=== PATIENT | female | born 1980 | race African-American/Black ===

== ENCOUNTER 2020-04-11 11:02 | Emergency (ER) | payer MEDICAID ==
[~2020-04-11] VITALS: Ht 167.6 cm; Wt 70.3 kg
[2020-04-11] MEDS ORDERED: Metoclopramide 10mg/2ml Inj IVP ONE (11:30)
[2020-04-11] MEDS ORDERED: Omnipaque 350 100ml vial INJ PRN (11:30)
--- NOTE | 2020-04-11 11:30 | Emergency Room Report ---
History of Present Illness General Chief Complaint: Headache Source: Patient Present Illness HPI 39-year-old female, no past medical history no surgical history no family history presents with vague complaints of intermittent headache that comes on with exertion specifically sexual intercourse lasting 2 hours with severe intensity and slowly dying off, no alleviating factors severity is severe, intermittent, patient states she usually does not get headaches, no nausea no vomiting no weakness patient presents for evaluation and treatment Allergies: Coded Allergies: No Known Allergies (Unverified , 04/11/20) COVID-19 Screening Contact w/high risk pt: No Experienced COVID-19 symptoms?: No COVID-19 Testing performed PARAMEDIC SUPERVISOR: No Patient History Past Medical History: see triage record Last Menstrual Period: 03/30/20 Reviewed Nursing Documentation: PMH: Agreed; PSxH: Agreed Nursing Documentation-PMH Past Medical History: No Stated History Review of Systems All Other Systems: negative except mentioned in HPI Physical Exam Vital Signs Date Time Temp Pulse Resp B/P (MAP) Pulse Ox O2 Delivery O2 Flow Rate FiO2 04/11/20 11:06 97.9 68 18 137/76 (96) 99 Room Air Sp02 EP Interpretation: reviewed, normal General Appearance: well appearing, no apparent distress, alert Head: normocephalic, atraumatic Eyes: bilateral eye PERRL, bilateral eye EOMI ENT: uvula midline, moist mucus membranes Neck: supple, thyroid normal, supple/symm/no masses Respiratory: lungs clear, no respiratory distress, no retraction, no accessory muscle use Cardiovascular #1: normal peripheral pulses, regular rate, rhythm, no edema, no gallop, no murmur Gastrointestinal: non tender, soft, no guarding, no rebound Musculoskeletal: normal inspection Neurologic: alert, motor strength/tone normal, business consult III-XII nml as tested, orie nted x3, cerebellar normal - Cnuoue-om-llny testing intact, speech normal, normal gait, no pronator, other - Negative Romberg Psychiatric: mood/affect normal Skin: no rash, warm/dry Medical Decision Making Diagnostic Impression: Primary Impression: Headache Qualified Codes: R51.9 - Headache, unspecified ER Course There are no red flags of SCHMID, not sudden in onset, not maximal in onset, no acute neurological findings, no fever with head stiffness, how ever patient does have an exertional component will evaluate for possible aneurysm with CTA. Low suspicion for subarachnoid hemorrhage, encephalitis, meningitis. CTA negative. Pain improved s/p headache cocktail reassurance. Return precautions discussed follow-up with PCP. Laboratory Tests Test 04/11/20 11:28 White Blood Count 6.1 K/UL (4.8-10.8) Red Blood Count 4.33 M/UL (4.20-5.40) Hemoglobin 13.3 G/DL (12.0-16.0) Hematocrit 38.9 % (37.0-47.0) Mean Corpuscular Volume 90 FL (80-99) Mean Corpuscular Hemoglobin 30.6 PG (27.0-31.0) Mean Corpuscular Hemoglobin Concent 34.0 G/DL (32.0-36.0) Red Cell Distribution Width 12.1 % (11.6-14.8) Platelet Count 361 K/UL (150-450) Mean Platelet Volume 6.0 FL (6.5-10.1) L Neutrophils (%) (Auto) 37.3 % (45.0-75.0) L Lymphocytes (%) (Auto) 46.5 % (20.0-45.0) H Monocytes (%) (Auto) 6.7 % (1.0-10.0) Eosinophils (%) (Auto) 6.2 % (0.0-3.0) H Basophils (%) (Auto) 3.2 % (0.0-2.0) H Prothrombin Time 11.0 SEC (9.30-11.50) Prothrombin Time INR 1.0 (0.9-1.1) Activated Partial Thromboplast Time 26 SEC (23-33) Urine Color Yellow Urine Appearance Clear Urine pH 6 (4.5-8.0) Urine Specific [place] 1.020 (1.005-1.035) Urine Protein 1+ (NEGATIVE) H Urine Glucose (UA) Negative (NEGATIVE) Urine Ketones Negative (NEGATIVE) Urine Blood Negative (NEGATIVE) Urine Nitrite Negative (NEGATIVE) Urine Bilirubin Negative (NEGATIVE) Urine Urobilinogen Normal MG/DL (0.0-1.0) Urine Leukocyte Esterase 1+ (NEGATIVE) H Urine RBC 0-2 /HPF (0 - 2) Urine WBC 0-2 /HPF (0 - 2) Urine Squamous Epithelial Cells Few /LPF (NONE/OCC) Urine Bacteria Occasional /HPF (NONE) Urine Mucus Moderate /LPF (NONE/OCC) H Urine HCG, Qualitative Negative (NEGATIVE) Sodium Level 140 MMOL/L (136-145) Potassium Level 3.7 MMOL/L (3.5-5.1) Chloride Level 104 MMOL/L (98-107) Carbon Dioxide Level 29 MMOL/L (21-32) Anion Gap 7 mmol/L (5-15) Blood Urea Nitrogen 4 mg/dL (7-18) L Creatinine 0.9 MG/DL (0.55-1.30) Estimated Glomerular Filtration Rate > 60 mL/min (>60) Glucose Level 96 MG/DL (74-106) Calcium Level 8.8 MG/DL (8.5-10.1) Total Bilirubin 0.4 MG/DL (0.2-1.0) Aspartate Amino Transferase (AST) 15 U/L (15-37) Alanine Aminotransferase (ALT) 16 U/L (12-78) Alkaline Phosphatase 55 U/L (46-116) Total Protein 6.8 G/DL (6.4-8.2) Albumin 3.6 G/DL (3.4-5.0) Globulin 3.2 g/dL Albumin/Globulin Ratio 1.1 (1.0-2.7) Human Chorionic Gonadotropin, Quant < 1 mIU/mL (1-6) L Last Vital Signs Date Time Temp Pulse Resp B/P (MAP) Pulse Ox O2 Delivery O2 Flow Rate FiO2 04/11/20 11:06 97.9 68 18 137/76 (96) 99 Room Air Disposition: HOME, SELF-CARE Condition: Stable Scripts Riboflavin (VITAMIN B-2) 100 Mg Tablet 400 MG PO DAILY, #120 TAB Prov: Quirino Torres MD 04/11/20 [facility]: [facility] Patient Instructions: General Headache Without Cause Additional Instructions: The patient was provided with discharge instructions, notified to follow-up with a primary care doctor and or specialist in the next 24-48 hours, and to return to the ED if they have worsening of their symptoms. Please note that this report is being documented using DRAGON technology. This can lead to erroneous entry secondary to incorrect interpretation by the dictating instrument. Quirino Torres MD Apr 11, 2020 11:30
[2020-04-11 11:42] VITALS: BP 137/76
--- NOTE | 2020-04-11 11:44 | NUR ---
ED Nurse Note:pt. c/o migraine headache, blood and urine sent to labs , iv fluids given
[2020-04-11 12:00] LABS: APPEARANCE,URINE CLEAR; BILIRUBIN, URINE NEGATIVE (NEGATIVE); GLUCOSE, URINE (UA) NEGATIVE (NEGATIVE); KETONES,URINE NEGATIVE (NEGATIVE); LEUKOCYTE ESTERASE ,URINE 1+ (NEGATIVE); NITRITE,URINE NEGATIVE (NEGATIVE); PH,URINE 6 (4.5-8.0); PROTEIN,URINE 1+ (NEGATIVE); UROBILINOGEN,URINE NORMAL MG/DL (0.0-1.0)
[2020-04-11 12:01] LABS: BASOPHILS % (AUTO) 3.2 % (0.0-2.0); EOSINOPHILS % (AUTO) 6.2 % (0.0-3.0); HEMATOCRIT 38.9 % (37.0-47.0); HEMOGLOBIN 13.3 G/DL (12.0-16.0); LYMPHOCYTES % (AUTO) 46.5 % (20.0-45.0); MEAN CORPUSCULAR VOLUME 90 FL (80-99); MONOCYTES % (AUTO) 6.7 % (1.0-10.0); NEUTROPHILS % (AUTO) 37.3 % (45.0-75.0); PLATELET COUNT 361 K/UL (150-450); RED BLOOD COUNT 4.33 M/UL (4.20-5.40); RED CELL DISTRIBUTION WIDTH 12.1 % (11.6-14.8); WHITE BLOOD COUNT 6.1 K/UL (4.8-10.8)
[2020-04-11 12:06] LABS: COLOR,URINE YELLOW
[2020-04-11 12:15] LABS: ANION GAP 7 mmol/L (5-15); BLOOD UREA NITROGEN 4 mg/dL (7-18); CALCIUM 8.8 MG/DL (8.5-10.1); CARBON DIOXIDE 29 MMOL/L (21-32); CHLORIDE 104 MMOL/L (98-107); CREATININE 0.9 MG/DL (0.55-1.30); POTASSIUM 3.7 MMOL/L (3.5-5.1); SODIUM 140 MMOL/L (136-145)
[2020-04-11 12:21] LABS: ALANINE AMINOTRANSFERASE 16 U/L (12-78); ALBUMIN 3.6 G/DL (3.4-5.0); ALBUMIN/GLOBULIN RATIO 1.1 (1.0-2.7); ALKALINE PHOSPHATASE 55 U/L (46-116); ASPARTATE AMINO TRANSFERASE 15 U/L (15-37); BILIRUBIN,TOTAL 0.4 MG/DL (0.2-1.0)
--- NOTE | 2020-04-11 12:26 | NUR ---
ED Nurse Note: pt taken for imaging with WC in stable condition.
--- NOTE | 2020-04-11 12:45 | NUR ---
ED Nurse Note: pt came back from imaging in stable condition.
--- NOTE | 2020-04-11 14:47 | Diagnostic Imaging Report ---
Indication: Headache Technique: Precontrast spiral acquisitions obtained through the brain. IV administration nonionic contrast. Arterial phase acquisitions obtained through the neck and brain, delayed phase acquisitions through the brain. Multiplanar 3-D reconstructions were generated. Total dose length product 4340 mGycm. CTDIvol(s) 45, 5, 19, 28, 2845 mGy. Dose reduction achieved using automated exposure control Comparison: none Findings Exam is somewhat limited, as arterial opacification is adequate but not optimal. CTA NECK: Unremarkable aortic arch. Patent nonstenotic right brachiocephalic artery, common carotid artery, internal carotid artery. No evidence of carotid dissection. Patent nonstenotic right proximal subclavian artery. Patent codominant nonstenotic right vertebral artery. Patent nonstenotic right common carotid artery and internal carotid artery. No evidence of internal carotid dissection demonstrated. No significant stenosis. Patent nonstenotic left subclavian artery. Portions of the proximal vertebral artery are obscured due to streak artifact from adjacent contrast filled veins but no definite significant stenosis or occlusion is evident. CTA BRAIN: Precontrast images demonstrate no evidence of acute intracranial hemorrhage or edema, mass effect, nor midline shift. Normal dennis-white differentiation. Normal size ventricles and extra-axial CSF spaces. Patent bilateral extracranial vertebral arteries right smaller caliber than the left. Patent nonstenotic basilar artery. Patent bilateral superior cerebellar arteries. Patent nonstenotic bilateral posterior cerebral arteries and proximal branches. Patent nonstenotic distal internal carotid arteries. Patent nonstenotic bilateral middle cerebral arteries and proximal branches. Patent nonstenotic bilateral anterior cerebral artery and proximal branches. Both posterior communicating arteries appear to be patent. Anterior communicating artery is not definitely visualized. No evidence of intracranial aneurysm or vascular malformation demonstrated. The veins and dural sinuses are unremarkable NONVASCULAR: There are bilateral maxillary sinus polyps versus retention cysts. The optic globes are intact. Retroseptal orbits are unremarkable. The upper lungs are clear. There is reversal the normal cervical lordosis. There are numerous prominent cervical lymph nodes,, with nodes measuring up to 2.7 cm long axis diameter. There is also enlargement of the bilateral tonsils. The adenoids are also prominent. Impression: No evidence of significant intracranial or extracranial cerebrovascular insufficiency. No evidence of dissection or aneurysm Enlarged and numerous bilateral cervical lymph nodes, tonsils, and adenoids. Most likely reactive, but correlation with clinical findings is recommended Bilateral maxillary sinus polyp or mucous retention cyst The CT scanner at [facility] is accredited by the [employer] and the scans are performed using protocols designed to limit radiation exposure to as low as reasonably achievable to attain images of sufficient resolution adequate for diagnostic evaluation.
[2020-04-11] MEDS ORDERED: VITAMIN B-2100 MG PO (14:52)
--- NOTE | 2020-04-11 15:00 | NUR ---
ER DISCHARGE NOTE: Patient is cleared to be discharged per ERMD, pt is aox4, on room air, with stable vital signs. pt was given dc and prescription instructions, pt was able to verbalize understanding, pt id band and iv site removed without complications. pt is able to ambulate with steady gait. pt took all belongings.
[2020-04-11 15:01] VITALS: BP 133/78
== END 2020-04-11 15:04 | disposition home or self-care (01) ==
LOC: EMR 13:41
DX: R51.9 Headache, unspecified (principal); R59.9 Enlarged lymph nodes, unspecified
CPT/HCPCS: 36415; 70496; 70498; 80053; 81003; 81025; 84702; 85025; 85610; 85730; 96361; 96374; J2765; J7030; Q9967; Z7502; 99284